=== PATIENT | female | born 1950 | race Asian ===

== ENCOUNTER 2024-08-03 09:46 | Emergency (ER) | payer SELFPAY ==
[2024-08-03 09:49] VITALS: BP 112/55; PULSE 80; RESP 16; TEMP 36.2; O2SAT 97; BMI 21.7
[2024-08-03 11:18] VITALS: BP 114/60; PULSE 69; RESP 14; TEMP 36.7; O2SAT 99
--- NOTE | 2024-08-03 11:33 | ECG_ITS ---
Test Reason : STROKE PROTOCOL Blood Pressure : */* mmHG Vent. Rate : 68 BPM Atrial Rate : 68 BPM P-R Int : 138 ms QRS Dur : 70 ms QT Int : 418 ms P-R-T Axes : 53 69 54 degrees QTcB Int : 444 ms Normal sinus rhythm Normal ECG No previous ECGs available Referred By: Yuliya Cramer Electronically Signed By: MAURA ROBERTS MD
--- NOTE | 2024-08-03 11:34 | ED.NEUROSD ---
HPI - Neuro Symptoms/Deficit General Chief Complaint: Neuro Symptoms/Deficit Stated Complaint: R Arm Numbness Tingling Time Seen by Provider: 08/03/24 10:29 History of Present Illness HPI Narrative: Patient is a 74-year-old female with a history of high cholesterol. Currently only on herbal medication from [place]. No fever no chills. No chest pain. Patient from home. Complaining of bilateral hand tingling. Worse on the right side. There is some tingling in the shoulder area on the right. There is no tingling in the elbow. There is no focal weakness, motor seems grossly intact. There is no change in vision. Patient's speech seems to be clear to the daughter thought process seems to be okay. No pain on urination. Patient from home. Symptoms been ongoing for the last few days. More gradual in onset. Related Data Allergies Allergy/AdvReac Type Severity Reaction Status Date / Time No Known Allergies Allergy Verified 08/03/24 09:49 Review of Systems Review of Systems: Positive tingling to the hand bilaterally. Worse on the right Yes all other systems are reviewed and are negative [facility] Past Medical History Attestation statement: The following information was validated with the patient. Social History Social History Advance Directives: No Advance Directives Information Provided: Yes Do you have a plan to hurt others: No Plan Physical Exam Vital Signs: Vital Signs: Last Vital Signs Temp 98.0 F 08/03/24 11:18 Pulse 67 08/03/24 12:23 Resp 14 08/03/24 12:23 BP 125/65 08/03/24 12:23 Pulse Ox 100 08/03/24 12:23 O2 Del Method Room Air 08/03/24 12:23 BMI result Body Mass Index 21.7 Appearance: Alert. Oriented X3. No acute distress. Eyes: Pupils equal, round and reactive to light. ENT: Pharynx normal. Neck: Normal inspection. Neck supple. No lymph nodes noted. No crepitus CVS: Normal heart rate and rhythm. Pulses normal. Normal S1 and S2 Respiratory: No respiratory distress. Breath sounds normal. No Wheezing. No rales Abdomen: Soft and nontender. No rigidity. No distention. good BS x4 Skin: Skin warm and dry. Normal skin color. Normal skin turgor. Extremities: No lower extremity edema. Neurovascular intact to all extremities. No Lacerations. No Rash Neuro: Oriented X 3. No motor deficit. No sensory deficit. Moving all extermities. No slurred speech Medical Decision Making Medical Decision Making [facility] Narrative: Patient NIH stroke scale is 0 has nonspecific hand tingling worse on the right side. There is no change in speech. There is no change in voice. There is no change in motor. [id number] rapid alternating movement intact. Good strength 5/5 in bilateral upper extremity. There is no change in vision. Howard the patient's risk of CVA is low. Nevertheless given the focal nature having right-sided tingling that is seems to be more severe a CT head CTA was ordered. Electrolytes were ordered. Will check patient's urine. White count is normal hemoglobin is 13.5 no evidence for anemia. Patient's electrolytes show a normal sugar no evidence for hypoglycemia causing patient's symptoms. Troponin is negative. My interpretation of patient's EKG showed a sinus rhythm heart rate is 70 AR QRS QTC normal no acute ST segment elevation no signs of arrhythmia noted on the EKG. Patient's cholesterol level is 171 total with a high HDL. No evidence for extreme hypercholesterolemia. Patient is no acute distress. Because of the right-sided tingling we did order a CT head and CTA. Patient refused. Understood small risk of stroke. Left against medical advice. Patient to follow-up on outpatient basis. Phone number for clinic given. Patient is from [place]. Has no primary here we did refer patient to [facility]. Differential Diagnosis Differential Diagnoses: The differential diagnosis associated with the presentation includes Admission/Observation Consideration of admission/observation: Escalation of care including admission/observation considered Lab Data [facility] Lab Attestation statement: I reviewed the patient's lab results. 08/03/24 12:04 08/03/24 12:04 Labs: Lab Results 08/03/24 Range/Units 12:04 WBC 4.2 L (4.8-10.8) X10*3/uL RBC 4.42 (4.20-5.50) X10*6/uL Hgb 13.5 (12.0-16.0) g/dl Hct 40.4 (37.0-47.0) % MCV 91.4 (80.0-98.0) fL MCH 30.5 (27.0-33.0) pg MCHC 33.4 (31.0-35.0) g/dl RDW 12.8 (11.0-16.0) % Plt Count 227 (160-400) X10*3/uL MPV 9.9 (9.4-12.3) fL Immature Gran % (Auto) 0.2 (0.0-0.4) % Neut % (Auto) 43.7 L (45-73) % Lymph % (Auto) 43.2 H (20-40) % Donley % (Auto) 9.1 (2-11) % Eos % (Auto) 3.1 (0-4) % Baso % (Auto) 0.7 (0-2) % Lymph # (Auto) 1.8 (1.2-4.9) X10*3/uL Donley # (Auto) 0.4 (0.1-1.2) X10*3/uL Eos # (Auto) 0.1 (0.0-0.4) X10*3/uL Baso # (Auto) 0.0 (0.0-0.2) X10*3/uL Abs Immat Gran (auto) 0.01 (0.00-0.03) X10*3/uL Absolute Neuts (auto) 1.8 L (2.0-8.3) x10*3/uL Absolute Nucleated RBC 0.000 (0.0-0.012) X10*3/uL Nucleated RBC % (auto) 0.0 (0.0-0.2) /100WBC PT 10.5 L (10.9-12.4) SEC INR 0.9 (0.9-1.1) APTT 30.3 (26.0-36.8) SEC Sodium 140 (135-145) mmol/L Potassium 4.2 (3.3-5.1) mmol/L Chloride 107 (96-108) mmol/L Carbon Dioxide 26 (22-29) mmol/L Anion Gap 11 L (12-20) BUN 20 H (9-16) mg/dL Creatinine 0.65 (0.5-1.4) mg/dL Estim Creat Clear Calc 54.5 Estimated GFR > 60 Random Glucose 103 (60-115) mg/dL Calcium 9.0 (8.4-10.2) mg/dL Troponin I High Sens < 2.7 (<3.5-17.0) ng/L Triglycerides 286 H (<150) mg/dL Cholesterol 171 (<200) mg/dL LDL Cholesterol, Calc 67 (<100) mg/dL HDL Cholesterol 47 (>40) mg/dL Independent Interpretation I performed an independent interpretation of an: EKG (Sinus heart rate is 70 AR QRS QTC normal no acute ST segment elevation) Independent Historian Clinical information obtained from an independent historian. History obtained from or confirmed by: Other (Daughter) NIH Stroke Scale Internal: Initial- Upon Arrival Time: 11:37 Level of Consciousness: Alert Level of Consciousness Questions: Answers both questions correctly Level of Consciousness Commands: Performs both tasks correctly Best Gaze: Normal Visual: No visual loss Facial Palsy: Normal Motor Arm (Right): No drift Motor Arm (Left): No drift Motor Leg (Right): No drift Motor Leg (Left): No drift Limb Ataxia: Absent Sensory: Normal Best Language: No aphasia Dysarthia: Normal Extinction and Inattention: No abnormality Score: 0 Discharge Plan Discharge Clinical Impression: Peripheral neuropathy Patient Disposition: Left Against Medical Advice Instructions: Paresthesia (ED) Additional Instructions: Small risk of stroke exists. Worsening condition return to the emergency department. Referrals: [facility] [Provider Group] - 08/05/24 Print Language: Lao
[2024-08-03 12:09] LABS: MANUAL DIFF FLAG NO
[2024-08-03 12:11] LABS: Basophils Percent Auto 0.7 % (0-2); Eosinophils Absolute Auto 0.1 X10*3/uL (0.0-0.4); Eosinophils Percent Auto 3.1 % (0-4); Hematocrit 40.4 % (37.0-47.0); Hemoglobin 13.5 g/dl (12.0-16.0); Imm Gran Abs Auto 0.01 X10*3/uL (0.00-0.03); Imm Gran Pct Auto 0.2 % (0.0-0.4); Lymphocytes Absolute Auto 1.8 X10*3/uL (1.2-4.9); Lymphocytes Percent Auto 43.2 % (20-40); Mean Corpuscular HGB Conc 33.4 g/dl (31.0-35.0); Mean Corpuscular Hemoglobin 30.5 pg (27.0-33.0); Mean Corpuscular Volume 91.4 fL (80.0-98.0); Mean Platelet Volume 9.9 fL (9.4-12.3); Monocytes Absolute Auto 0.4 X10*3/uL (0.1-1.2); Monocytes Percent Auto 9.1 % (2-11); Neutrophils Absolute Auto 1.8 x10*3/uL (2.0-8.3); Neutrophils Percent Auto 43.7 % (45-73); Platelet Count 227 X10*3/uL (160-400); Red Blood Count 4.42 X10*6/uL (4.20-5.50); Red Cell Distribution Width 12.8 % (11.0-16.0); White Blood Count 4.2 X10*3/uL (4.8-10.8)
[2024-08-03 12:20] LABS: INTERNATIONAL NORM RATIO 0.9 (0.9-1.1); Prothrombin Time 10.5 SEC (10.9-12.4)
[2024-08-03 12:22] LABS: Partial Thromboplastin Time 30.3 SEC (26.0-36.8)
[2024-08-03 12:23] VITALS: BP 125/65; PULSE 67; RESP 14; O2SAT 100
[2024-08-03 12:34] LABS: Anion Gap 11 (12-20); Blood Urea Nitrogen 20 mg/dL (9-16); Carbon Dioxide 26 mmol/L (22-29); Chloride 107 mmol/L (96-108); Cholesterol 171 mg/dL (<200); Creatinine Clr Calc Pharmacy 54.5; Estimated Glomerular Filt Rate > 60; Glucose Random 103 mg/dL (60-115); HDL Cholesterol 47 mg/dL (>40); LDL Cholesterol Calculated 67 mg/dL (<100); Potassium 4.2 mmol/L (3.3-5.1); Sodium 140 mmol/L (135-145); Triglycerides 286 mg/dL (<150)
[2024-08-03 12:44] LABS: Troponin-I High Sensitivity < 2.7 ng/L (<3.5-17.0)
[2024-08-03 14:05] VITALS: BP 129/63; PULSE 69; RESP 16; TEMP 36.9; O2SAT 100
== END 2024-08-03 14:06 | disposition left against medical advice (07) ==
PROVIDERS: Emergency Provider Emergency Medicine Emergency Medical Services
DX: G62.9 Polyneuropathy, unspecified (principal); R20.2 Paresthesia of skin; R29.700 NIHSS score 0; E78.5 Hyperlipidemia, unspecified; Z53.29 Procedure and treatment not carried out because of patient's decision for other reasons
CPT/HCPCS: 36415; 80048; 80061; 84484; 85025; 85610; 85730; 93005; 99284

== ENCOUNTER → 2024-08-03 11:33 | Outpatient (BNV) | payer SELFPAY | PROVIDERS: Emergency Provider Emergency Medicine Emergency Medical Services; Visit Provider Internal Medicine Cardiovascular Disease | DX: R20.2 Paresthesia of skin (principal) | CPT/HCPCS: 93010 ==